=== PATIENT | male | born 1985 | race African-American/Black ===

== ENCOUNTER 2025-06-29 10:06 | Inpatient (IN) | payer MEDICARE, MEDICAID ==
[~2025-06-29] VITALS: Ht 167.6 cm; Wt 103.4 kg
[2025-06-29 11:09] LABS: HEMATOCRIT. 47.2 % (42.0-52.0); HEMOGLOBIN. 15.6 g/dL (14.0-18.0); MEAN PLATELET VOLUME 8.1 fl (7.4-10.4); PLATELET 432 x1000/uL (130-400); RED BLOOD CELL COUNT 4.84 mill/uL (4.7-6.1); RED CELL DISTRIBUTION WIDTH 13.3 % (11.6-14.6)
[2025-06-29 11:26] LABS: CREATININE 1.1 mg/dL (0.6-1.3); UREA NITROGEN BLOOD 11 mg/dL (9-23)
[2025-06-29 11:54] LABS: BAND% 1.0 % (1.0-6.0); LYMPHOCYTES % MANUAL 10.0 % (20.0-50.0); MONOCYTES % MANUAL 9.0 % (2.0-8.0); NEUTROPHILS % MANUAL 80.0 % (45.0-75.0)
[2025-06-29 11:55] LABS: PLATELET ESTIMATE SLIGHTLY INCREASED
[2025-06-29] MEDS: ONDANSETRON HCL 4MG/2ML INJ IV ONE (11:57)
[2025-06-29] MEDS: SODIUM CHLORIDE 0.9% 1,000 ML IV ONE (11:57)
[2025-06-29] MEDS: MORPHINE SULFATE 4 MG/ML INJ (FOR IV/IM USE) IV ONE (11:57)
[2025-06-29 12:05] LABS: ASPARTATE AMINOTRANSFERASE 15 IU/L (<34); BILIRUBIN DIRECT 0.3 mg/dL (<=3.0); BILIRUBIN TOTAL 0.9 mg/dL (0.1-1.0); PROTEIN TOTAL 9.3 g/dL (6.0-8.3)
[2025-06-29] MEDS ORDERED: ACETAMINOPHEN 325MG TABLET PO PRN (14:00)
[2025-06-29] MEDS ORDERED: ZOLPIDEM TARTRATE 5MG TABLET PO PRN (14:00)
[2025-06-29] MEDS ORDERED: MAGNESIUM/ALUMINUM HYDROXIDE/SIMETHICONE 30ML UDC PO PRN (14:00)
[2025-06-29] MEDS ORDERED: MORPHINE SULFATE 2 MG/ML INJ (NOT FOR IM USE) IV PRN (14:00)
[2025-06-29 14:08] VITALS: BP 134/92; PULSE 85; RESP 20; TEMP 36.5848
[2025-06-29] MEDS ORDERED: NALOXONE HCL 0.4MG/ML VIAL IV PRN (14:15)
[2025-06-29 16:56] VITALS: BP 132/71; PULSE 91; RESP 20; TEMP 37.2; O2SAT 96
[2025-06-29] MEDS: PIPERACILLIN/TAZO 3.375G/50ML 50 ML IV SCH (17:49)
[2025-06-29] MEDS: HYDROCODONE/ACETAMINOPHEN 5/325MG TABLET PO PRN (17:50)
[2025-06-29] MEDS: ONDANSETRON HCL 4MG/2ML INJ IV PRN (17:50)
[2025-06-29] MEDS: SODIUM CHLORIDE 0.9% 1,000 ML IV SCH (17:50)
[2025-06-29 19:09] LABS: *AMPHETAMINES SCREEN URINE NEGATIVE (NEGATIVE); *BARBITURATES SCREEN URINE NEGATIVE (NEGATIVE); *BENZODIAZEPINES SCREEN URINE NEGATIVE (NEGATIVE); *COCAINE SCREEN URINE NEGATIVE (NEGATIVE); CANNABINOID URINE SCREEN PRESUMPTIVE POSITIVE (NEGATIVE); ECSTASY MDMA SCREEN URINE NEGATIVE (NEGATIVE); METHADONE URINE SCREEN NEGATIVE (NEGATIVE); OPIATES URINE SCREEN PRESUMPTIVE POSITIVE (NEGATIVE); PHENCYCLIDINE URINE SCREEN NEGATIVE (NEGATIVE)
[2025-06-29 19:10] LABS: CLARITY URINE CLOUDY (CLEAR); COLOR URINE DARK YELLOW (YELLOW); GLUCOSE URINE NEGATIVE (NEGATIVE); KETONES URINE 3+ (NEGATIVE); LEUKOCYTE ESTERASE URINE TRACE (NEGATIVE); NITRITE URINE NEGATIVE (NEGATIVE); OCCULT BLOOD URINE NEGATIVE (NEGATIVE); PH URINE 5.5 (4.5-8.0); PROTEIN URINE 3+ (NEGATIVE); SPECIFIC GRAVITY URINE 1.043 (1.005-1.030); UROBILINOGEN URINE 1.0 E.U./dL (0.2-1.0)
[2025-06-29 20:00] VITALS: BP 124/73; PULSE 109; RESP 18; TEMP 36.7; O2SAT 95
[2025-06-29 20:14] LABS: BACTERIA URINE 1+; RBC URINE 0-2 /hpf (0-2); SQUAMOUS EPITHELIAL CELL URINE 1+ /lpf (RARE/1+)
[2025-06-29] MEDS: ENOXAPARIN 30MG/0.3ML SYR SUBCUT SCH (21:54)
[2025-06-30] VITALS: BP 162/77; PULSE 85; RESP 27; TEMP 36.4; O2SAT 98
[2025-06-30] MEDS: MORPHINE SULFATE 4 MG/ML INJ (FOR IV/IM USE) IV PRN (02:00)
[2025-06-30 06:51] LABS: HEMATOCRIT. 49.7 % (42.0-52.0); HEMOGLOBIN. 16.6 g/dL (14.0-18.0); MEAN PLATELET VOLUME 8.8 fl (7.4-10.4); PLATELET 497 x1000/uL (130-400); RED BLOOD CELL COUNT 5.11 mill/uL (4.7-6.1); RED CELL DISTRIBUTION WIDTH 13.1 % (11.6-14.6)
[2025-06-30 06:57] LABS: UREA NITROGEN BLOOD 21.0 mg/dL (9-23)
[2025-06-30 07:57] LABS: CREATININE 1.8 mg/dL (0.6-1.3)
[2025-06-30 08:00] VITALS: BP 131/88; PULSE 105; RESP 18; TEMP 36.6; O2SAT 98
[2025-06-30] MEDS: KCL 20MEQ/100ML PREMIX 100 ML IV SCH (09:23)
[2025-06-30] MEDS: PANTOPRAZOLE SODIUM 40 MG/VIAL IV SCH (09:23)
[2025-06-30] MEDS: POTASSIUM CHLORIDE 40 MEQ in DEXT 5% WATER 230 ML IV NR (15:00)
[2025-06-30 16:00] VITALS: BP 139/89; PULSE 99; RESP 20; TEMP 36.7; O2SAT 99
[2025-06-30 17:19] LABS: LYMPHOCYTES % MANUAL 8.0 % (20.0-50.0); MONOCYTES % MANUAL 8.0 % (2.0-8.0); NEUTROPHILS % MANUAL 84.0 % (45.0-75.0); PLATELET ESTIMATE NORMAL
[2025-06-30] MEDS: METHYLPREDNISOLONE SOD SUCC 40MG/ML (ACT-O-VIAL) IV SCH (17:48)
[2025-06-30] MEDS: DEXT 5%/0.45% NACL 1000ML 1,000 ML IV SCH (18:03)
[2025-06-30 20:00] VITALS: BP 145/84; PULSE 113; RESP 19; TEMP 36.4; O2SAT 97
[2025-06-30] MEDS: GUAIFENESIN 600MG ER TABLET PO SCH (21:00)
[2025-06-30 21:10] VITALS: PULSE 98; RESP 19; O2SAT 97
[2025-06-30] MEDS: IPRATROPIUM/ALBUTEROL 0.5-3(2.5)MG/3ML NEB HHN SCH (21:12)
[2025-06-30 21:21] LABS: HEPATITIS A AB IGM NEGATIVE (Negative); HEPATITIS B CORE AB IGM NEGATIVE (Negative)
[2025-06-30 21:22] LABS: HEPATITIS C AB NON REACTIVE (Neg) (Negative)
[2025-06-30] MEDS ORDERED: POTASSIUM CHLORIDE 40 MEQ in DEXT 5% WATER 230 ML IV ONE (23:15)
[2025-06-30] MEDS: KCL 20MEQ/100ML X 2 FOR TOTAL KCL 40MEQ/200ML IV SCH (23:40)
[2025-07-01] VITALS (11 sets, daily range): BP systolic 106–145; BP diastolic 68–89; PULSE 67–136; RESP 16–21; TEMP 36.5–38.3; O2SAT 94–97
[2025-07-01] MEDS: CLONIDINE 0.1MG TABLET PO PRN (04:16)
[2025-07-01 09:05] LABS: CREATININE 1.5 mg/dL (0.6-1.3); UREA NITROGEN BLOOD 32 mg/dL (9-23)
[2025-07-01 09:37] LABS: HEMATOCRIT. 45.1 % (42.0-52.0); HEMOGLOBIN. 14.7 g/dL (14.0-18.0); MEAN PLATELET VOLUME 9.4 fl (7.4-10.4); PLATELET 333 x1000/uL (130-400); RED BLOOD CELL COUNT 4.60 mill/uL (4.7-6.1); RED CELL DISTRIBUTION WIDTH 12.9 % (11.6-14.6)
[2025-07-01] MEDS: VANCOMYCIN 2GM PMX (XELLIA) 400 ML IV SCH (17:13)
[2025-07-01 21:53] LABS: LYMPHOCYTES % MANUAL 8.0 % (20.0-50.0); MONOCYTES % MANUAL 4.0 % (2.0-8.0); NEUTROPHILS % MANUAL 88.0 % (45.0-75.0); PLATELET ESTIMATE NORMAL
[2025-07-01] MEDS: PREDNISONE 20MG TABLET PO SCH (23:06)
[2025-07-02] VITALS (12 sets, daily range): BP systolic 110–142; BP diastolic 58–84; PULSE 88–114; RESP 15–20; TEMP 36.7–37.2; O2SAT 92–100
[2025-07-02 06:37] LABS: HEMATOCRIT. 41.5 % (42.0-52.0); HEMOGLOBIN. 13.7 g/dL (14.0-18.0); MEAN PLATELET VOLUME 9.3 fl (7.4-10.4); PLATELET 316 x1000/uL (130-400); RED BLOOD CELL COUNT 4.25 mill/uL (4.7-6.1); RED CELL DISTRIBUTION WIDTH 12.9 % (11.6-14.6)
[2025-07-02] MEDS: VANCOMYCIN 750MG PREMIX 150 ML IV SCH ×2 (07:00→21:43)
[2025-07-02 07:30] LABS: CREATININE 1.1 mg/dL (0.6-1.3)
[2025-07-02 07:31] LABS: UREA NITROGEN BLOOD 21 mg/dL (9-23)
[2025-07-02] MEDS ORDERED: LORAZEPAM 2MG/ML UD SYRINGE IV PRN (12:30)
[2025-07-02] MEDS ORDERED: IOHEXOL-350 100 ML BOTTLE ONE (13:30)
[2025-07-02] MEDS ORDERED: LEVETIRACETAM 1,000MG in NACL 100ML PREMIX IV ONE (15:30)
[2025-07-02 16:21] LABS: LYMPHOCYTES % MANUAL 7.0 % (20.0-50.0); MONOCYTES % MANUAL 11.0 % (2.0-8.0); NEUTROPHILS % MANUAL 82.0 % (45.0-75.0); PLATELET ESTIMATE NORMAL
[2025-07-02] MEDS: LEVETIRACETAM 1000MG PREMIX 100 ML IV SCH (16:35)
[2025-07-03] VITALS (10 sets, daily range): BP systolic 116–139; BP diastolic 63–83; PULSE 70–108; RESP 16–20; TEMP 36.5–37.7; O2SAT 91–100
[2025-07-03 07:13] LABS: A/G RATIO 0.6 (0.7-1.7); BETA GLOBULIN 1.3 g/dL (0.7-1.3); GAMMA GLOBULINS 1.9 g/dL (0.4-1.8); GLOBULIN TOTAL 4.9 g/dL (2.2-3.9); M-SPIKE Not Observed g/dL (Not Observed); TOTAL PROTEIN SERUM 7.9 g/dL (6.0-8.5)
[2025-07-03] MEDS: LEVETIRACETAM 500MG TABLET PO SCH (20:06)
[2025-07-03] MEDS: IPRATROPIUM/ALBUTEROL 0.5-3(2.5)MG/3ML NEB HHN SCH (21:17)
[2025-07-04] VITALS (10 sets, daily range): BP systolic 108–136; BP diastolic 59–84; PULSE 70–101; RESP 16–20; TEMP 36.3–37.2; O2SAT 85–97
[2025-07-04] MEDS: ASCORBIC ACID 500 MG TABLET PO SCH (08:31)
[2025-07-04] MEDS: HYDROCODONE/ACETAMINOPHEN 5/325MG TABLET PO PRN (17:56)
[2025-07-04 18:34] LABS: BASOPHILS % 0.1 % (0.0-2.0); EOSINOPHILS % 2.0 % (0.0-5.0); HEMATOCRIT. 38.4 % (42.0-52.0); HEMOGLOBIN. 12.9 g/dL (14.0-18.0); LYMPHOCYTES % 20.2 % (20.0-50.0); MEAN PLATELET VOLUME 8.2 fl (7.4-10.4); MONOCYTES % 11.0 % (2.0-8.0); NEUTROPHILS % 66.7 % (40.0-76.0); PLATELET 288 x1000/uL (130-400); RED BLOOD CELL COUNT 3.98 mill/uL (4.7-6.1); RED CELL DISTRIBUTION WIDTH 12.6 % (11.6-14.6)
[2025-07-04 19:00] LABS: CREATININE 0.9 mg/dL (0.6-1.3)
[2025-07-04 19:01] LABS: UREA NITROGEN BLOOD 9 mg/dL (9-23)
[2025-07-04] MEDS: KCL 20MEQ/100ML PREMIX 100 ML IV SCH (20:28)
[2025-07-05] VITALS (9 sets, daily range): BP systolic 109–131; BP diastolic 56–81; PULSE 73–117; RESP 18–20; TEMP 36.1–37.7; O2SAT 95–98
[2025-07-05 04:10] LABS: ANA IFA Negative (.)
[2025-07-05 07:17] LABS: CREATININE 0.9 mg/dL (0.6-1.3); UREA NITROGEN BLOOD 10 mg/dL (9-23)
[2025-07-05 07:18] LABS: BASOPHILS % 0.1 % (0.0-2.0); EOSINOPHILS % 2.2 % (0.0-5.0); HEMATOCRIT. 37.9 % (42.0-52.0); HEMOGLOBIN. 12.7 g/dL (14.0-18.0); LYMPHOCYTES % 18.7 % (20.0-50.0); MEAN PLATELET VOLUME 8.8 fl (7.4-10.4); MONOCYTES % 10.0 % (2.0-8.0); NEUTROPHILS % 69.0 % (40.0-76.0); PLATELET 288 x1000/uL (130-400); RED BLOOD CELL COUNT 3.96 mill/uL (4.7-6.1); RED CELL DISTRIBUTION WIDTH 12.7 % (11.6-14.6)
[2025-07-05] MEDS: POTASSIUM CHLORIDE 20MEQ TABLET SR PO NR (09:37)
[2025-07-05] MEDS ORDERED: KCL 20MEQ/100ML PREMIX 100 ML IV SCH ×2 (10:00→10:45)
[2025-07-05] MEDS ORDERED: POTASSIUM CHLORIDE 20MEQ/PACKET PO NR (10:15)
[2025-07-05] MEDS ORDERED: KEPP500 PO (10:35)
[2025-07-05] MEDS ORDERED: ASCO500T20 PO (10:35)
[2025-07-05] MEDS ORDERED: GUAI600T44 PO (10:35)
[2025-07-05] MEDS ORDERED: IPRA3AMP9 HHN (10:35)
[2025-07-05] MEDS ORDERED: POTASSIUM CHLORIDE 20MEQ TABLET SR PO NR ×2 (10:47→11:00)
[2025-07-05] MEDS: POTASSIUM CHLORIDE 20MEQ/PACKET PO NR (10:54)
[2025-07-06] VITALS: BP_SYST 129; BP_SYST 93; BP_DIAS 61; BP_DIAS 72; PULSE 101; PULSE 103; RESP 18; TEMP 36.6; TEMP 37.5; O2SAT 98; O2SAT 99
[2025-07-06 04:00] VITALS: BP 129/72; PULSE 103; RESP 18; TEMP 36.6; O2SAT 99
[2025-07-06 08:00] VITALS: BP 110/67; PULSE 99; RESP 16; TEMP 36.7; O2SAT 98
[2025-07-06] MEDS: FAMOTIDINE 20MG/2ML VIAL IV SCH (08:36)
[2025-07-06 12:00] VITALS: BP 118/62; PULSE 100; RESP 16; TEMP 36.6; O2SAT 99
[2025-07-06 13:14] LABS: BASOPHILS % 0.4 % (0.0-2.0); EOSINOPHILS % 2.6 % (0.0-5.0); HEMATOCRIT. 39.2 % (42.0-52.0); HEMOGLOBIN. 13.4 g/dL (14.0-18.0); LYMPHOCYTES % 17.1 % (20.0-50.0); MEAN PLATELET VOLUME 8.6 fl (7.4-10.4); MONOCYTES % 10.9 % (2.0-8.0); NEUTROPHILS % 69.0 % (40.0-76.0); PLATELET 348 x1000/uL (130-400); RED BLOOD CELL COUNT 4.11 mill/uL (4.7-6.1); RED CELL DISTRIBUTION WIDTH 12.8 % (11.6-14.6)
[2025-07-06 13:25] LABS: CREATININE 0.9 mg/dL (0.6-1.3); UREA NITROGEN BLOOD 9 mg/dL (9-23)
[2025-07-06 13:28] LABS: PHOSPHORUS 2.0 mg/dL (2.5-4.9)
[2025-07-06] MEDS: POTASSIUM CHLORIDE 20MEQ TABLET SR PO SCH (14:19)
[2025-07-06 16:00] VITALS: BP 135/95; PULSE 108; RESP 18; TEMP 36.8; O2SAT 94
[2025-07-06 16:31] VITALS: BP 135/95; PULSE 108; RESP 18; TEMP 98.2
[2025-07-07] MEDS ORDERED: POTASSIUM CHLORIDE 20MEQ TABLET SR PO SCH (09:00)
== END 2025-07-06 18:54 | DRG 871 ==
LOC: EDBD 10:46 → ER 10:46 → EDBEDREQSVC 12:55 → EDBEDREQ 12:55 → EDBEDREQTM 12:55 → 7WST 14:36
PROVIDERS: ADMIT Internal Medicine; ATTEND Internal Medicine
DX: A41.9 Sepsis, unspecified organism (principal); N17.0 Acute kidney failure with tubular necrosis; G93.40 Encephalopathy, unspecified; N39.0 Urinary tract infection, site not specified; F11.13 Opioid abuse with withdrawal; N18.9 Chronic kidney disease, unspecified; K76.9 Liver disease, unspecified; G40.909 Epilepsy, unspecified, not intractable, without status epilepticus; I12.9 Hypertensive chronic kidney disease with stage 1 through stage 4 chronic kidney disease, or unspecified chronic kidney disease; F19.10 Other psychoactive substance abuse, uncomplicated; E83.52 Hypercalcemia; R77.1 Abnormality of globulin; G89.29 Other chronic pain; D75.839 Thrombocytosis, unspecified; D75.89 Other specified diseases of blood and blood-forming organs; E87.6 Hypokalemia; F17.210 Nicotine dependence, cigarettes, uncomplicated; Z80.3 Family history of malignant neoplasm of breast; Z90.49 Acquired absence of other specified parts of digestive tract
CPT/HCPCS: 36415; 70496; 70498; 71045; 74176; 76705; 80048; 80076; 80202; 80305; 81003; 82550; 82962; 83735; 83970; 84100; 84145; 84155; 84165; 84443; 85025; 86256; 86705; 86709; 87340; 92610; 93005; 93970; 94070; 94640; 94664; 96361; 96374; 96375; 98960; 99285; A4606; J1308; J1650; J1953; J2270; J2405; J2470; J2543; J2919; J3373; J3480; J7030; J7060; J7512; Q9967